=== PATIENT | male | born 1945 | race Caucasian/White ===

== ENCOUNTER 2018-06-16 11:14 | Emergency (ER) | payer OTHER ==
[~2018-06-16] VITALS: Ht 175.3 cm; Wt 93.2 kg
--- NOTE | 2018-06-16 11:59 | PHYS DOC ---
Past History Past Medical History: High Cholesterol, Hypertension Past Surgical History: No Surgical History Alcohol Use: Occasionally Drug Use: None Adult General Chief Complaint Chief Complaint: ABDOMINAL PAIN [facility] HPI 73-year-old male presents with 3 day history of intermittent epigastric abdominal pain. Patient states it felt more like hunger pains last 2 days until today. Today it had a sharp character to it that was time to get it checked out. He denies nausea, vomiting, shortness of breath or chest pain. He denies dysuria or urinary frequency. He has had 2 bowel movements today. He hasn't had pain like this before however he has had H. pylori in the past that was several years ago. He is not currently on any current medications. Denies difficulty with heartburn at baseline. He denies fever or chills. Review of Systems Review of Systems Constitutional: Denies fever or chills [] Eyes: Denies change in visual acuity, redness, or eye pain [] HENT: Denies nasal congestion or sore throat [] Respiratory: Denies cough or shortness of breath [] Cardiovascular: No additional information not addressed in HPI [] GI: Gastric abdominal pain. No nausea, vomiting, or diarrhea.[] : Denies dysuria or hematuria [] Musculoskeletal: Denies back pain or joint pain [] Integument: Denies rash or skin lesions [] Neurologic: Denies headache, focal weakness or sensory changes [] Endocrine: Denies polyuria or polydipsia [] All other systems were reviewed and found to be within normal limits, except as documented in this note. Allergies Allergies Allergies Coded Allergies Type Severity Reaction Last Updated Verified Sulfa (Sulfonamide Antibiotics) Allergy Intermediate 06/16/18 Yes Physical Exam Physical Exam Constitutional: Well developed, well nourished, no acute distress, non-toxic appearance. [] HENT: Normocephalic, atraumatic, bilateral external ears normal, oropharynx moist, no oral exudates, nose normal. [] Eyes: PERRLA, EOMI, conjunctiva normal, no discharge. [] Neck: Normal range of motion, no tenderness, supple, no stridor. [] Cardiovascular:Heart rate regular rhythm, no murmur [] Lungs & Thorax: Bilateral breath sounds clear to auscultation [] Abdomen: Bowel sounds normal, soft, no tenderness, no masses, no pulsatile masses. [] Skin: Warm, dry, no erythema, no rash. [] Back: No tenderness, no CVA tenderness. [] Extremities: No tenderness, no cyanosis, no clubbing, ROM intact, no edema. [] Neurologic: Alert and oriented X 3, normal motor function, normal sensory function, no focal deficits noted. [] Psychologic: Affect normal, judgement normal, mood normal. [] Current Patient Data Vital Signs Vital Signs Date Time Temp Pulse Resp B/P (MAP) Pulse Ox O2 Delivery O2 Flow Rate FiO2 06/16/18 11:31 98.2 57 18 97 Room Air EKG EKG EKG sinus rhythm, rate 53, prolonged CA interval, left axis, no ST elevations or depressions.[] Radiology/Procedures Radiology/Procedures Examination: Single frontal view of the abdomen HISTORY: History of abdominal pain for 4 days COMPARISON: None available. FINDINGS: Minimal left lung base airspace opacities likely atelectasis. The bowel gas pattern appears unremarkable. Feces and gas noted in the colon. IMPRESSION: Unremarkable bowel gas pattern. Electronically signed by: Ronal Macias MD (06/16/2018 12:20 PM) [facility] DICTATED AND SIGNED BY: RONAL MACIAS MD DATE: 06/16/18 1218 CC: SANDY WALLS DO; AKIN LOREDO DO [] Course & Med Decision Making Course & Med Decision Making Pertinent Labs and Imaging studies reviewed. (See chart for details) Patient's labs are unremarkable. His lactic acid is normal, troponin normal. His EKG shows prolonged CA interval but no elevations or depressions. Chest x- ray is unremarkable except for some minimal linear bibasilar atelectasis. I doubt this is causing his discomfort.. I have given the patient GI cocktail to see if this helps with his discomfort. This is the patient's workup is unremarkable. The GI cocktail has improved his symptoms. The patient is stable for discharge at this time. [] Dragon Disclaimer Dragon Disclaimer This electronic medical record was generated, in whole or in part, using a voice recognition dictation system. Departure Departure: Referrals: AKIN LOREDO DO (PCP) SANDY WALLS DO Jun 16, 2018 11:59
[2018-06-16 12:21] LABS: BASO # 0.1 x10^3/uL (0.0-0.2); BASO % 1 % (0-3); EOS # 0.1 x10^3/uL (0.0-0.7); EOS % 1 % (0-3); HEMATOCRIT 46.1 % (39.0-53.0); HEMOGLOBIN 15.4 g/dL (13.0-17.5); LYMPH # 1.6 x10^3/uL (1.0-4.8); LYMPH % 19 % (24-48); MEAN CORPUSCULAR HEMOGLOBIN 31 pg (25-35); MEAN CORPUSCULAR HGB CONC 33 g/dL (31-37); MEAN CORPUSCULAR VOLUME 93 fL (79-100); MONO # 0.7 x10^3/uL (0.0-1.1); MONO % 8 % (0-9); NEUT # 6.2 x10^3uL (1.8-7.7); NEUT % 72 % (31-73); PLATELET COUNT 246 x10^3/uL (140-400); RED BLOOD COUNT 4.93 x10^6/uL (4.30-5.70); RED CELL DISTRIBUTION WIDTH 13.4 % (11.5-14.5); WHITE BLOOD COUNT 8.6 x10^3/uL (4.0-11.0)
--- NOTE | 2018-06-16 12:24 | RAD ---
Examination: Single frontal view of the abdomen HISTORY: History of abdominal pain for 4 days COMPARISON: None available. FINDINGS: Minimal left lung base airspace opacities likely atelectasis. The bowel gas pattern appears unremarkable. Feces and gas noted in the colon. IMPRESSION: Unremarkable bowel gas pattern. Electronically signed by: Ronal Macias MD (06/16/2018 12:20 PM) [facility]
[2018-06-16 12:27] LABS: BACTERIA,URINE 0 /HPF (0-FEW); BILIRUBIN,URINE NEG (NEG); CLARITY,URINE CLEAR; COLOR,URINE STRAW; GLUCOSE,URINE NEG (NEG); NITRITE,URINE NEG (NEG); RBC,URINE 0 /HPF (0-2); SQUAMOUS EPITHELIAL CELL,UR OCC /LPF; UROBILINOGEN,URINE 0.2 mg/dL (0.2 mg/dL); WBC,URINE 0 /HPF (0-4)
[2018-06-16 12:34] LABS: ALBUMIN 3.7 g/dL (3.4-5.0); ALBUMIN/GLOBULIN RATIO 1.1 (1.0-1.7); CALCIUM 8.6 mg/dL (8.5-10.1); CREATININE 0.9 mg/dL (0.7-1.3); GFR 82.9; POTASSIUM 4.2 mmol/L (3.5-5.1); TOTAL BILIRUBIN 0.6 mg/dL (0.2-1.0); TOTAL PROTEIN 7.2 g/dL (6.4-8.2)
[2018-06-16] MEDS ORDERED: LIDO:MAALOX 1:1 20 ML SINGLE DOSE. PO ONE (13:20)
--- NOTE | 2018-06-16 13:40 | RAD ---
EXAM: CHEST 1 VIEW History: Chest pain COMPARISON: None available. TECHNIQUE: Single portable radiograph of the chest FINDINGS: The cardiac silhouette is unremarkable. Minimal linear bibasilar lung atelectasis. The costophrenic sulci are clear and well demarcated. IMPRESSION: Minimal bibasilar lung atelectasis. Electronically signed by: Ronal Macias MD (06/16/2018 1:36 PM) [facility]
[2018-06-16 14:12] VITALS: BP 150/87
--- NOTE | 2018-06-16 14:32 | EKG ---
[address] [address] Test Date: 2018-06-16 Test Time: 13:26:14 Pat Name: VANNESSA CROSS Department: Room: Gender: M Endoscopy Rn: : [id number] Requested By: SANDY WALLS Order Number: [id number] Reading MD: Nahid Ulrich Measurements Intervals [place] Rate: 53 P: 1 WY: 256 QRS: -24 QRSD: 110 T: 1 QT: 418 QTc: 394 Interpretive Statements SINUS RHYTHM PROLONGED WY INTERVAL LEFTWARD AXIS INCOMPLETE RIGHT BUNDLE BRANCH BLOCK ABNORMAL ECG Electronically Signed On 06-17-2018 9:06:04 RECOATER by Nahid Ulrich
== END 2018-06-16 14:28 | disposition home or self-care (01) ==
LOC: ER 11:14
DX: R10.13 Epigastric pain (principal); E78.00 Pure hypercholesterolemia, unspecified; I10 Essential (primary) hypertension; Z88.2 Allergy status to sulfonamides
CPT/HCPCS: 36415; 71045; 74018; 80053; 81001; 83605; 84484; 85025; 93005; 99284